=== PATIENT | male | born 1985 | race Hispanic/Latino ===

== ENCOUNTER 2018-01-28 12:34 | Emergency (ER) | payer SELFPAY ==
[2018-01-28 13:10] VITALS: BP 130/85; PULSE 95; RESP 18; TEMP 36.9; O2SAT 98
--- NOTE | 2018-01-28 13:22 | DI.US.S_ITS ---
PROCEDURE: US ABDOMEN COMPLETE INDICATIONS: RUQ pain, hx hep C TECHNIQUE: Real-time scanning was performed of the abdominal and retroperitoneal organs, with image documentation. COMPARISON: None. FINDINGS: Liver: The liver is normal in size and echogenicity when compared to the right kidney. However, there are 2 echogenic lesions identified within the right hepatic lobe and that measure up to 1.3 cm in diameter, which may represent small hemangiomas. No definite increased vascularity is demonstrated to these small echogenic foci. Gallbladder: The gallbladder is normal in size. A small polyp versus adherent stone along the posterior wall of the gallbladder is identified, measuring up to approximately 3 mm in diameter. No gallbladder wall thickening or pericholecystic fluid is evident. No definite gallstones are appreciated. Biliary ducts: Intrahepatic bile ducts are non-dilated. Extrahepatic bile duct caliber measures 3 mm. Normal is 6-7 mm or less in diameter, or 10 mm or less post-cholecystectomy. Pancreas: Visualized portions of the pancreas are sonographically normal. Spleen: Spleen is normal in size and homogeneous in echotexture. Kidneys: Kidneys are normal in size and echotexture. Right kidney measures 9.8 cm long; left kidney measures 10.1 cm long. No hydronephrosis or nephrolithiasis. No solid masses. Aorta: Visualized aorta is normal in caliber at less than 3 cm. Iliacs: Proximal common iliac arteries are normal in caliber at less than 2.5 cm. IVC: Intrahepatic inferior vena cava is patent. Miscellaneous: No free abdominal fluid. IMPRESSION: 1. No cholelithiasis. There may be a small adherent stone/sludge versus polyp along the gallbladder wall is of doubtful significance. 2. Small echogenic lesions in the liver are likely incidental and most likely represent small hemangiomas. An MRI of the abdomen with contrast is recommended for further evaluation, which may be performed on an outpatient basis. 3. No hydronephrosis of the kidneys. Dictated by: Cristi Lomax M.D. on 01/28/2018 at 15:30 Approved by: Cristi Lomax M.D. on 01/28/2018 at 15:37
[2018-01-28 14:13] LABS: Add Manual Diff / Slide Review NO; Basophils Percent Auto 0.3 % (0-2); Eosinophils Percent Auto 0.2 % (2-4); Hematocrit 48.1 % (41-53); Lymphocytes Percent Auto 22.9 % (25-40); Mean Corpuscular HGB Conc 35.4 % (30-36); Mean Corpuscular Hemoglobin 30.4 PG (26-34); Mean Corpuscular Volume 85.8 fL (80-100); Monocytes Percent Auto 6.4 % (3-14); Neutrophils Absolute Auto 4700 /uL (3000-5900); Neutrophils Percent Auto 70.2 % (50-75); Platelet Count 193 X10^3/uL (150-400); White Blood Cell Count 6.7 X10^3/uL (4.5-11.0)
[2018-01-28 14:20] LABS: INR 1.2 (0.9-1.3)
[2018-01-28 14:27] LABS: Alanine Aminotransferase 57 IU/L (21-72); Albumin 4.9 g/dL (3.5-5.0); Albumin Globulin Ratio 1.3 (1.0-2.8); Alkaline Phosphatase 62 U/L (38-126); Aspartate Aminotransferase 58 IU/L (17-59); BUN Creatinine Ratio 13.8 (6-22); Bilirubin Total 0.9 mg/dL (0.2-1.3); Blood Urea Nitrogen 11 mg/dL (9-20); Calcium 9.6 mg/dL (8.4-10.2); Carbon Dioxide 27 mmol/L (22-32); Chloride 102 mmol/L (98-107); Estimated Glomerular Filt Rate > 60.0 mL/min (>60); Globulin 3.7 g/dL (1.7-4.1); Glucose 101 mg/dL (70-100); HEMOLYSIS < 15 (0-50); Potassium 4.2 mmol/L (3.4-5.1); Sodium 143 mmol/L (137-145); Total Protein 8.6 g/dL (6.3-8.2)
--- NOTE | 2018-01-28 15:26 | ED.ABDPAIN ---
HPI - Abdominal Pain General Chief Complaint: Abdominal Pain Stated Complaint: HEP C, LIVER ISSUES Time Seen by Provider: 01/28/18 13:21 Source: patient Mode of arrival: ambulatory Limitations: no limitations History of Present Illness HPI narrative: 32-year-old nonsmoking male presents with right upper quadrant pain for the past few days. He states he has had hepatitis C for over 20 years and takes no medications and has no doctors. He had been in his normal state of health until taking some antibiotics for a gonococcal infection and his symptoms started soon thereafter. He denies any fever or chills nor nausea or vomiting. His pain is worse with motion and improves with rest. He actually states it is largely gone wanted to be evaluated nonetheless MD complaint: abdominal pain Onset (ago): day(s) Pain Consistency: now resolved Location: RUQ Severity: moderate Quality: cramping Radiation: none Migration to: no migration Relieving factors: rest Exacerbating factors: movement Associated symptoms: denies other symptoms Related Data Home Medications Medication Instructions Recorded Confirmed No Known Home Medications 01/28/18 01/28/18 Allergies Allergy/AdvReac Type Severity Reaction Status Date / Time No Known Drug Allergies Allergy Verified 01/28/18 13:14 Review of Systems Review of Systems All systems reviewed & are unremarkable except as noted in HPI and below Constitutional Denies chills, Denies fever(s), Denies lethargy and Denies weakness Eyes Denies change in vision, Denies eye discharge, Denies irritation and Denies loss of vision ENT Ears, Nose, Mouth, and Throat: Denies change in voice, Denies neck pain and Denies sore throat Cardiovascular Denies chest pain, Denies irregular heart rhythm, Denies lightheadedness, Denies palpitations, Denies dyspnea, Denies dyspnea on exertion and Denies orthopnea Respiratory Denies cough, Denies dyspnea, Denies dyspnea on exertion and Denies wheezing Gastrointestinal Gastrointestinal: Reports abdominal pain, Denies change in bowel habits, Denies diarrhea, Denies nausea and Denies vomiting Genitourinary Denies hematuria, Denies flank pain, Denies urinary incontinence and Denies urinary urgency Musculoskeletal Denies neck pain Integumentary/Breasts Denies pruritus, Denies erythema, Denies rash and Denies wounds Neurologic Denies confusion, Denies loss of vision and Denies weakness Psychiatric Denies anxiety, Denies confusion, Denies depression, Denies homicidal ideation and Denies suicidal ideation Endocrine Denies palpitations Hematologic/Lymphatic Denies easy bruising Allergic/Immunologic Denies wheezing FOR[facility]LY [facility] Medical History Hepatitis C (Acute) Social History Smoking Status: Never smoker Exam Narrative Exam Narrative: GENERAL: This is a well-nourished, well-developed patient, in mild distress. HEAD: Atraumatic. Normocephalic. No temporal or scalp tenderness. EYES: Pupils equal round and reactive. Extraocular motions intact. No scleral icterus. No injection or drainage. ENT: Nose without bleeding, purulent drainage or septal hematoma. Throat without erythema, tonsillar hypertrophy or exudate. Uvula midline. Airway patent. NECK: Trachea midline. No JVD or lymphadenopathy. Supple, nontender, no meningeal signs. CARDIOVASCULAR: Regular rate and rhythm without murmurs, gallops, or rubs. RESPIRATORY: Clear to auscultation. Breath sounds equal bilaterally. No wheezes, rales, or rhonchi. GASTROINTESTINAL: Abdomen soft, non-tender, nondistended. No hepato-splenomegaly, or palpable masses. No guarding. EXTREMITIES: No clubbing, cyanosis, or edema. No joint tenderness, effusion, or edema noted. BACK: Nontender without deformity or crepitance. No flank tenderness. NEURO: AOx3. SKIN: No rash or erythema. Initial Vital Signs Initial Vital Signs: Vital Signs Temperature 98.4 F 01/28/18 13:10 Pulse Rate 95 H 01/28/18 13:10 Respiratory Rate 18 01/28/18 13:10 Blood Pressure 130/85 01/28/18 13:10 Pulse Oximetry 98 01/28/18 13:10 Course Orders Ordered: ED Orders 01/28/18 13:22 US abdomen complete Stat 01/28/18 14:05 Complete Blood Count AUTO DIFF Stat Comprehensive Metabolic Panel Stat Prothrombin Time INR Stat Vital Signs - 8 hr 01/28/18 13:10 01/28/18 16:16 Temperature 98.4 F Pulse Rate 95 H 74 Respiratory Rate 18 20 Blood Pressure 130/85 138/82 Pulse Oximetry 98 100 MDM - Abdominal Pain Differential Diagnosis Differential diagnosis: Likely abdominal pain, calculus of kidney, diverticulitis, gastroenteritis, pancreatitis and small bowel obstruction Medical Records Attestation: I reviewed the patient's medical records. Lab Data Attestation: I reviewed the patient's lab results. Result diagrams: 01/28/18 14:05 01/28/18 14:05 Lab Results 01/28/18 01/28/18 01/28/18 Range/Units 14:05 14:05 14:05 WBC 6.7 (4.5-11.0) X10^3/uL RBC 5.60 (4.5-5.9) X10^6/uL Hgb 17.0 (13.5-17.5) g/dL Hct 48.1 (41-53) % MCV 85.8 (80-100) fL MCH 30.4 (26-34) PG MCHC 35.4 (30-36) % RDW 13.0 (11.6-14.8) % Plt Count 193 (150-400) X10^3/uL Neut % (Auto) 70.2 (50-75) % Lymph % (Auto) 22.9 L (25-40) % Bay % (Auto) 6.4 (3-14) % Eos % (Auto) 0.2 L (2-4) % Baso % (Auto) 0.3 (0-2) % Neut # (Auto) 4700 (4410-4105) /uL PT 13.0 H (10.1-12.7) SECONDS INR 1.2 (0.9-1.3) Sodium 143 (137-145) mmol/L Potassium 4.2 (3.4-5.1) mmol/L Chloride 102 (98-107) mmol/L Carbon Dioxide 27 (22-32) mmol/L BUN 11 (9-20) mg/dL Creatinine 0.80 (0.66-1.25) mg/dL Estimated GFR > 60.0 (>60) mL/min BUN/Creatinine Ratio 13.8 (6-22) Glucose 101 H (70-100) mg/dL Calcium 9.6 (8.4-10.2) mg/dL Total Bilirubin 0.9 (0.2-1.3) mg/dL AST 58 (17-59) IU/L ALT 57 (21-72) IU/L Alkaline Phosphatase 62 (38-126) U/L Total Protein 8.6 H (6.3-8.2) g/dL Albumin 4.9 (3.5-5.0) g/dL Globulin 3.7 (1.7-4.1) g/dL Albumin/Globulin Ratio 1.3 (1.0-2.8) ABG Data Interpretation: [address] [address] Ultrasound Report Signed Patient: JOSE C FALCON JR TMR#: [id number] : 1985Acct:[id number] Age/Sex: 32 / MDate of Service: 01/28/18 Loc: ED Accession Number: [id number] Procedure: US abdomen complete Ordering Provider: Michelet Huddleston D.O. PROCEDURE: US ABDOMEN COMPLETE INDICATIONS: RUQ pain, hx hep C TECHNIQUE: Real-time scanning was performed of the abdominal and retroperitoneal organs, with image documentation. COMPARISON: None. FINDINGS: Liver: The liver is normal in size and echogenicity when compared to the right kidney. However, there are 2 echogenic lesions identified within the right hepatic lobe and that measure up to 1.3 cm in diameter, which may represent small hemangiomas. No definite increased vascularity is demonstrated to these small echogenic foci. Gallbladder: The gallbladder is normal in size. A small polyp versus adherent stone along the posterior wall of the gallbladder is identified, measuring up to approximately 3 mm in diameter. No gallbladder wall thickening or pericholecystic fluid is evident. No definite gallstones are appreciated. Biliary ducts: Intrahepatic bile ducts are non-dilated. Extrahepatic bile duct caliber measures 3 mm. Normal is 6-7 mm or less in diameter, or 10 mm or less post-cholecystectomy. Pancreas: Visualized portions of the pancreas are sonographically normal. Spleen: Spleen is normal in size and homogeneous in echotexture. Kidneys: Kidneys are normal in size and echotexture. Right kidney measures 9.8 cm long; left kidney measures 10.1 cm long. No hydronephrosis or nephrolithiasis. No solid masses. Aorta: Visualized aorta is normal in caliber at less than 3 cm. Iliacs: Proximal common iliac arteries are normal in caliber at less than 2.5 cm. IVC: Intrahepatic inferior vena cava is patent. Miscellaneous: No free abdominal fluid. IMPRESSION: 1. No cholelithiasis. There may be a small adherent stone/sludge versus polyp along the gallbladder wall is of doubtful significance. 2. Small echogenic lesions in the liver are likely incidental and most likely represent small hemangiomas. An MRI of the abdomen with contrast is recommended for further evaluation, which may be performed on an outpatient basis. 3. No hydronephrosis of the kidneys. Dictated by: Cristi Lomax M.D. on 01/28/2018 at 15:30 Approved by: Cristi Lomax M.D. on 01/28/2018 at 15:37 MDM Narrative Medical decision making narrative: patient largely asymptomatic but with chronic hepatitis-C. He has normal labs and an unremarkable abdominal ultrasound. He will be given contact information for follow-up with local GI as well as return precautions for the emergency department Discharge Plan Departure Patient Disposition: Home Clinical Impression: Abdominal pain Discharge Date/Time: 01/28/18 16:18 Interventions: ED Discharge Assessment Last Done: 01/28/18 16:16 Instructions: DI for Abdominal Pain-Adult Activity Restrictions/Additional Instructions: *You have been diagnosed with [ Right upper quadrant pain in the setting of known Hepatitis C ] *What to do: *Follow up GI, call for an appointment. Let them know you were seen in the Emergency Department and that we ask that you be seen in follow up *Return to ER if you should have any new, worsening or concerning symptoms Prescriptions: No Action No Known Home Medications RF: 0 Referrals: Nicola Miranda MD [Non-Staff] -
[2018-01-28 16:16] VITALS: BP 138/82; PULSE 74; RESP 20; O2SAT 100
--- NOTE | 2018-01-28 19:19 | ED_ITS ---
HPI - Abdominal Pain General Chief Complaint: Abdominal Pain Stated Complaint: HEP C, LIVER ISSUES Time Seen by Provider: 01/28/18 13:21 Source: patient Mode of arrival: ambulatory Limitations: no limitations History of Present Illness HPI narrative: 32-year-old nonsmoking male presents with right upper quadrant pain for the past few days. He states he has had hepatitis C for over 20 years and takes no medications and has no doctors. He had been in his normal state of health until taking some antibiotics for a gonococcal infection and his symptoms started soon thereafter. He denies any fever or chills nor nausea or vomiting. His pain is worse with motion and improves with rest. He actually states it is largely gone wanted to be evaluated nonetheless MD complaint: abdominal pain Onset (ago): day(s) Pain Consistency: now resolved Location: RUQ Severity: moderate Quality: cramping Radiation: none Migration to: no migration Relieving factors: rest Exacerbating factors: movement Associated symptoms: denies other symptoms Related Data Home Medications Medication Instructions Recorded Confirmed No Known Home Medications 01/28/18 01/28/18 Allergies Allergy/AdvReac Type Severity Reaction Status Date / Time No Known Drug Allergies Allergy Verified 01/28/18 13:14 Review of Systems Review of Systems All systems reviewed & are unremarkable except as noted in HPI and below Constitutional Denies chills, Denies fever(s), Denies lethargy and Denies weakness Eyes Denies change in vision, Denies eye discharge, Denies irritation and Denies loss of vision ENT Ears, Nose, Mouth, and Throat: Denies change in voice, Denies neck pain and Denies sore throat Cardiovascular Denies chest pain, Denies irregular heart rhythm, Denies lightheadedness, Denies palpitations, Denies dyspnea, Denies dyspnea on exertion and Denies orthopnea Respiratory Denies cough, Denies dyspnea, Denies dyspnea on exertion and Denies wheezing Gastrointestinal Gastrointestinal: Reports abdominal pain, Denies change in bowel habits, Denies diarrhea, Denies nausea and Denies vomiting Genitourinary Denies hematuria, Denies flank pain, Denies urinary incontinence and Denies urinary urgency Musculoskeletal Denies neck pain Integumentary/Breasts Denies pruritus, Denies erythema, Denies rash and Denies wounds Neurologic Denies confusion, Denies loss of vision and Denies weakness Psychiatric Denies anxiety, Denies confusion, Denies depression, Denies homicidal ideation and Denies suicidal ideation Endocrine Denies palpitations Hematologic/Lymphatic Denies easy bruising Allergic/Immunologic Denies wheezing [facility] Medical History Hepatitis C (Acute) Social History Smoking Status: Never smoker Exam Narrative Exam Narrative: GENERAL: This is a well-nourished, well-developed patient, in mild distress. HEAD: Atraumatic. Normocephalic. No temporal or scalp tenderness. EYES: Pupils equal round and reactive. Extraocular motions intact. No scleral icterus. No injection or drainage. ENT: Nose without bleeding, purulent drainage or septal hematoma. Throat without erythema, tonsillar hypertrophy or exudate. Uvula midline. Airway patent. NECK: Trachea midline. No JVD or lymphadenopathy. Supple, nontender, no meningeal signs. CARDIOVASCULAR: Regular rate and rhythm without murmurs, gallops, or rubs. RESPIRATORY: Clear to auscultation. Breath sounds equal bilaterally. No wheezes , rales, or rhonchi. GASTROINTESTINAL: Abdomen soft, non-tender, nondistended. No hepato-splenomegaly , or palpable masses. No guarding. EXTREMITIES: No clubbing, cyanosis, or edema. No joint tenderness, effusion, or edema noted. BACK: Nontender without deformity or crepitance. No flank tenderness. NEURO: AOx3. SKIN: No rash or erythema. Initial Vital Signs Initial Vital Signs: Vital Signs Temperature 98.4 F 01/28/18 13:10 Pulse Rate 95 H 01/28/18 13:10 Respiratory Rate 18 01/28/18 13:10 Blood Pressure 130/85 01/28/18 13:10 Pulse Oximetry 98 01/28/18 13:10 Course Orders Ordered: ED Orders 01/28/18 13:22 US abdomen complete Stat 01/28/18 14:05 Complete Blood Count AUTO DIFF Stat Comprehensive Metabolic Panel Stat Prothrombin Time INR Stat Vital Signs - 8 hr 01/28/18 13:10 01/28/18 16:16 Temperature 98.4 F Pulse Rate 95 H 74 Respiratory Rate 18 20 Blood Pressure 130/85 138/82 Pulse Oximetry 98 100 MDM - Abdominal Pain Differential Diagnosis Differential diagnosis: Likely abdominal pain, calculus of kidney, diverticulitis, gastroenteritis, pancreatitis and small bowel obstruction Medical Records Attestation: I reviewed the patient's medical records. Lab Data Attestation: I reviewed the patient's lab results. Result diagrams: 01/28/18 14:05 01/28/18 14:05 Lab Results 01/28/18 01/28/18 01/28/18 Range/Units 14:05 14:05 14:05 WBC 6.7 (4.5-11.0) X10^3/uL RBC 5.60 (4.5-5.9) X10^6/uL Hgb 17.0 (13.5-17.5) g/dL Hct 48.1 (41-53) % MCV 85.8 (80-100) fL MCH 30.4 (26-34) PG MCHC 35.4 (30-36) % RDW 13.0 (11.6-14.8) % Plt Count 193 (150-400) X10^3/uL Neut % (Auto) 70.2 (50-75) % Lymph % (Auto) 22.9 L (25-40) % Alfalfa % (Auto) 6.4 (3-14) % Eos % (Auto) 0.2 L (2-4) % Baso % (Auto) 0.3 (0-2) % Neut # (Auto) 4700 (2082-7628) /uL PT 13.0 H (10.1-12.7) SECONDS INR 1.2 (0.9-1.3) Sodium 143 (137-145) mmol/L Potassium 4.2 (3.4-5.1) mmol/L Chloride 102 (98-107) mmol/L Carbon Dioxide 27 (22-32) mmol/L BUN 11 (9-20) mg/dL Creatinine 0.80 (0.66-1.25) mg/dL Estimated GFR > 60.0 (>60) mL/min BUN/Creatinine Ratio 13.8 (6-22) Glucose 101 H (70-100) mg/dL Calcium 9.6 (8.4-10.2) mg/dL Total Bilirubin 0.9 (0.2-1.3) mg/dL AST 58 (17-59) IU/L ALT 57 (21-72) IU/L Alkaline Phosphatase 62 (38-126) U/L Total Protein 8.6 H (6.3-8.2) g/dL Albumin 4.9 (3.5-5.0) g/dL Globulin 3.7 (1.7-4.1) g/dL Albumin/Globulin Ratio 1.3 (1.0-2.8) ABG Data Interpretation: [address] [address] Ultrasound Report Signed Patient: JOSE C FALCON JR TMR#: [id number] : 1985Acct:[id number] Age/Sex: 32 / MDate of Service: 01/28/18 Loc: ED Accession Number: [id number] Procedure: US abdomen complete Ordering Provider: Michelet Huddleston D.O. PROCEDURE: US ABDOMEN COMPLETE INDICATIONS: RUQ pain, hx hep C TECHNIQUE: Real-time scanning was performed of the abdominal and retroperitoneal organs, with image documentation. COMPARISON: None. FINDINGS: Liver: The liver is normal in size and echogenicity when compared to the right kidney. However, there are 2 echogenic lesions identified within the right hepatic lobe and that measure up to 1.3 cm in diameter, which may represent small hemangiomas. No definite increased vascularity is demonstrated to these small echogenic foci. Gallbladder: The gallbladder is normal in size. A small polyp versus adherent stone along the posterior wall of the gallbladder is identified, measuring up to approximately 3 mm in diameter. No gallbladder wall thickening or pericholecystic fluid is evident. No definite gallstones are appreciated. Biliary ducts: Intrahepatic bile ducts are non-dilated. Extrahepatic bile duct caliber measures 3 mm. Normal is 6-7 mm or less in diameter, or 10 mm or less post-cholecystectomy. Pancreas: Visualized portions of the pancreas are sonographically normal. Spleen: Spleen is normal in size and homogeneous in echotexture. Kidneys: Kidneys are normal in size and echotexture. Right kidney measures 9.8 cm long; left kidney measures 10.1 cm long. No hydronephrosis or nephrolithiasis. No solid masses. Aorta: Visualized aorta is normal in caliber at less than 3 cm. Iliacs: Proximal common iliac arteries are normal in caliber at less than 2.5 cm. IVC: Intrahepatic inferior vena cava is patent. Miscellaneous: No free abdominal fluid. IMPRESSION: 1. No cholelithiasis. There may be a small adherent stone/sludge versus polyp along the gallbladder wall is of doubtful significance. 2. Small echogenic lesions in the liver are likely incidental and most likely represent small hemangiomas. An MRI of the abdomen with contrast is recommended for further evaluation, which may be performed on an outpatient basis. 3. No hydronephrosis of the kidneys. Dictated by: Cristi Lomax M.D. on 01/28/2018 at 15:30 Approved by: Cristi Lomax M.D. on 01/28/2018 at 15:37 MDM Narrative Medical decision making narrative: patient largely asymptomatic but with chronic hepatitis-C. He has normal labs and an unremarkable abdominal ultrasound. He will be given contact information for follow-up with local GI as well as return precautions for the emergency department Discharge Plan Departure Patient Disposition: Home Clinical Impression: Abdominal pain Discharge Date/Time: 01/28/18 16:18 Interventions: ED Discharge Assessment Last Done: 01/28/18 16:16 Instructions: DI for Abdominal Pain-Adult Activity Restrictions/Additional Instructions: *You have been diagnosed with [ Right upper quadrant pain in the setting of known Hepatitis C ] *What to do: *Follow up GI, call for an appointment. Let them know you were seen in the Emergency Department and that we ask that you be seen in follow up *Return to ER if you should have any new, worsening or concerning symptoms Prescriptions: No Action No Known Home Medications RF: 0 Referrals: Nicola Miranda MD [Non-Staff] -
== END 2018-01-28 16:18 | disposition home or self-care (01) ==
PROVIDERS: Emergency Provider Emergency Medicine
DX: R10.9 Unspecified abdominal pain (principal)
CPT/HCPCS: 36415; 76700; 80053; 85025; 85610; 99282; 99284